=== PATIENT | female | born 1980 | race Hispanic/Latino ===

== ENCOUNTER 2017-11-23 12:20 | Emergency (ER) | payer SELFPAY ==
[2017-11-23] MEDS ORDERED: HYDROcodone/Acetaminophen 5/325 mg Tablet ONE (13:25)
[2017-11-23] MEDS ORDERED: ISOVUE-370 76%-LOCM 1 ML ONE (13:27)
[2017-11-23 13:37] LABS: #Eosinphils 0.1 thou/uL (0.0-0.7); #Lymphocytes 1.6 thou/uL (1.20-3.40); #Monocytes 0.4 thou/uL (0.11-0.59); #Neutrophils 5.6 thou/uL (1.40-6.50); %Basophils 0.2 % (0.0-1.0); %Eosinophils 0.7 % (0.0-10.0); %Lymphocytes 21.4 % (21.0-51.0); %Monocytes 4.9 % (0.0-10.0); %Neutrophils 72.8 % (42.0-75.0); Hemoglobin 8.3 g/dL (12.0-16.0); Mean Corpuscular HGB CONC 30.5 g/dL (32.0-36.0); Mean Corpuscular Hemoglobin 20.6 pg (27.0-31.0); Mean Corpuscular Volume 67.7 fL (78.0-98.0); Platelet Count 228 thou/uL (130-400); RBC Distribution Width 16.8 % (11.5-14.5); Red Blood Cell (RBC) Count 4.03 mill/uL (4.20-5.40); White Blood Cell (WBC) Count 7.7 thou/uL (4.8-10.8)
[2017-11-23 13:54] LABS: Anion Gap 11 mmol/L (10-20); BUN (Urea Nitrogen) 8 mg/dL (7.0-18.7); Calc. Creatinine Clearance 0 mL/min (70-130); Calcium 8.9 mg/dL (7.8-10.44); Carbon Dioxide 26 mmol/L (22-29); Chloride 103 mmol/L (98-107); Estimated GFR-MDRD Greater than 90; Glucose 98 mg/dL (70-105); Potassium 3.5 mmol/L (3.5-5.1); Sodium 136 mmol/L (136-145)
[2017-11-23 13:56] LABS: Anisocytosis SLIGHT = 6-15 cells (100X) (0-5/hpf); Hypochromia SLIGHT = 6-15 cells (100X) (0-5/hpf); MDiff Complete? YES; Microcytosis SLIGHT = 6-15 cells (100X) (0-5/hpf); Ovalocytes SLIGHT = 2-5 cells (100X) (0-1/hpf); PLT Morphology Comment Appears Adequate; Polychromasia SLIGHT = 2-3 cells (100X) (0-2/hpf); Schistocytes SLIGHT = 2-5 cells (100X) (0-1/hpf)
[2017-11-23 13:58] LABS: Pregnancy Test - Urine (BHCG) Negative (Negative); Pregu Control Background? CLEAR/WHITE (CLR/WHITE); Pregu Control Bar Appear? YES (CONTROL BAR)
--- NOTE | 2017-11-23 15:44 | CT ---
CONTRAST ENHANCED CT OF THE ABDOMEN AND PELVIS: History: Infection of umbilical area. Denies fever. Lump over naval. Technique: Contrast enhanced CT images of the abdomen and pelvis obtained after the administration of IV contrast. FINDINGS: The lung bases are unremarkable. No evidence of free intraperitoneal air is seen. No evidence of intraabdominal abscess seen. The liver and spleen are unremarkable. The pancreas is unremarkable. Numerous gallstones seen. No evidence of gallbladder wall thickening seen. Adrenal glands and kidneys are unremarkable. There is marked thickening and inflammatory change in the region of the umbilicus compatible with a f ocal area of cellulitis in the region of the umbilicus without evidence of associated abscess. Incidentally noted bicornuate uterus is also seen. IMPRESSION: 1. Cholelithiasis. 2. Bicornuate uterus. 3. Umbilical inflammatory change compatible with slightly cellulitis without evidence of abscess. No evidence of intraabdominal abscess seen. POS: [facility]
== END 2017-11-23 15:28 | disposition home or self-care (01) ==
LOC: ERS 12:20
DX: L03.316 Cellulitis of umbilicus (principal)
CPT/HCPCS: 36415; 74177; 80048; 81025; 85025

== ENCOUNTER 2020-04-14 11:33 | Observation (INO) | payer OTHER, SELFPAY ==
[2020-04-14 12:18] VITALS: BMI 40.0
[2020-04-14] MEDS ORDERED: hydrALAZINE 20 MG/ML VIAL SLOW IVP PRN ×2 (12:34→17:22)
[2020-04-14] MEDS ORDERED: Acetaminophen 325 MG TAB PO SCH (12:45)
[2020-04-14 12:57] LABS: #Lymphocytes 1.4 thou/uL (1.20-3.40); #Monocytes 0.4 thou/uL (0.11-0.59); #Neutrophils 4.5 thou/uL (1.40-6.50); %Basophils 0.3 % (0.0-1.0); %Eosinophils 0.7 % (0.0-10.0); %Lymphocytes 22.1 % (21.0-51.0); %Monocytes 5.5 % (0.0-10.0); %Neutrophils 71.4 % (42.0-75.0); Hemoglobin 10.4 g/dL (12.0-16.0); Mean Corpuscular Hemoglobin 27.4 pg (27.0-31.0); Mean Platelet Volume 9.6 fL (7.4-10.4); Platelet Count 176 thou/uL (130-400); RBC Distribution Width 14.9 % (11.5-14.5); Red Blood Cell (RBC) Count 3.81 mill/uL (4.20-5.40); White Blood Cell (WBC) Count 6.3 thou/uL (4.8-10.8)
--- NOTE | 2020-04-14 13:09 | PDOC.FPROB ---
FMR OB H&P: HPI - History of Present Illness Chief Complaint: elevated BP in clinic Indentification: 39yo at 35.2 WGA History of Present Illness: This is a 39F who was sent from Clinic for an elevated SBP in the 150s in addition to intermittent headaches for the past 2wks and mid-epigastric pain. She is not prone to getting headaches and has not attempted taking anything to resolve them. She also states the epigastric pain just feels like pressure when the baby moves. She denies RUQ pain, vision changes/scotomas/blurriness, as well as LE edema. Primary Care Physician: clinic FMR OB H&P: Current - Care : 4 Para: 2011 Gestational age: 35.2 Due date: 05/17/2020 - OB Labs Blood type: unknown RH: unknown Antibody Screen: unknown HIV: unknown RPR: unknown HepBsAg: unknown Rubella: non-immune Quad screen: unknown Gonorrhea: unknown Chlamydia: unknown GBS: unknown - Additional Ultrasound Additional: 03/04 Hadlock 51% 03/27 Hadlock 64.8% FMR OB H&P: History - Past Medical History PMH: None - OB History OB History: Her first ended in a loss. Her second resulted in delivery via LTCS for breech presentation, IUGR, oligo, and anemia of at 37wks. Her third ended in an elective repeat C/S. Hx of pre-e requiring Mg and Labetalol She denies complications during the surgeries or in recovery. - VESSEL CAPTAIN History VESSEL CAPTAIN History: Denies hx of STIs - Surgical History Sx History: LTCS x2 - Social History Social History: Denies alcohol, drug, tobacco use - Family History Family History: Endorses family hx of DM and HTN FMR OB H&P: Medications - Current Home Medications: Medication Instructions Recorded Confirmed Type Ferrous Sulfate [Feosol] 325 mg PO BID-WM #0 tab 01/14/14 04/14/20 Rx Aspirin [Aspirin EC] 81 mg PO DAILY 04/14/20 04/14/20 History Pnv No.95/Ferrous Fum/Folic AC 1 tablet PO DAILY 04/14/20 04/14/20 History [ Tablet] Allergies/Adverse Reactions: Allergies Allergy/AdvReac Type Severity Reaction Status Date / Time No Known Allergies Allergy Verified 04/14/20 12:12 FMR OB H&P: ROS - Review of Systems General: denies: recent trauma Eyes: denies: vision changes, double vision, scotomas ENT: denies: nasal congestion, rhinorrhea, sore throat Cardiovascular: denies: chest pain, edema Respiratory: denies: cough, congestion, shortness of breath, exercise intolerance Gastrointestinal: reports: nausea (occasional, consistent throughout ). denies: abdominal pain, diarrhea, constipation Genitourinary (Female): denies: dysuria, polyuria, vaginal discharge, vaginal bleeding, contractions Musculoskeletal: denies: swelling Neurologic: reports: headache Integumentary: denies: itching, rash, lesions FMR OB H&P: Vital Signs - Maternal Vital signs: BP 152/86 -> 131/80 HR 70-78 RR 18, SpO2 100% on RA T 97.8F - Heart Tones Baseline: 145 Variability: moderate Acceleration: present Deceleration: absent Sullivan contractions every: N/A FMR OB H&P: Physical Exam - Physical Exam General: NAD, awake, alert and oriented HEENT: normocephalic and atraumatic, EOMI, grossly normal vision, grossly normal hearing Neck: supple Chest: non-tender to palpation Heart: RRR, normal S1/S2, pulses present (2+ radial b/l, bounding dp b/l), no edema Deviation from normal: Mild systolic murmur at L upper sternal border, doesn't radiate to carotids General: CTAB, no respiratory distress, good air movement Abdomen: soft, gravid, non-tender Musculoskeletal: pulses present Neurological: no focal deficit Skin: no rash Lymphatic: no unusual bruising or bleeding Psychiatric: intact recent and remote memory, normal mood and affect FMR OB H&P: Results - Labs Lab results: Laboratory Results - last 24 hr 04/14/20 12:52 WBC 6.3 RBC 3.81 L Hgb 10.4 L Hct 31.6 L MCV 83.0 MCH 27.4 MCHC 33.0 RDW 14.9 H Plt Count 176 MPV 9.6 Neutrophils % 71.4 Lymphocytes % 22.1 Monocytes % 5.5 Eosinophils % 0.7 Basophils % 0.3 Neutrophils # 4.5 Lymphocytes # 1.4 Monocytes # 0.4 Eosinophils # 0.0 Basophils # 0.0 FMR OB H&P: A/P Disposition: This is a 39yo at 35.2WGA sent from clinic for pre-eclampsia workup. Elevated Blood Pressures - Hx of Pre-e in prior - SBP on arrival 152 -> 131 on repeat. These measurements were consistent with the ones obtained at the Clinic about 2hrs earlier - Concern for pre-e given elevated BP and presence of intermittent ALATORRE x15 days - Tylenol 650mg dose given - Hb/Hct 10.4/31.6, Plts 176, AST/ALT 16/ - Random urine protein/Cr ratio 0.35 in support of a dx of pre-eclampsia - SBP in the 150s before 1100 in [facility] followed by BP of 138/90 on 1532, completing the requirements for a dx of pre-eclampsia - Plan to admit and observe overnight SIUP - 35.2 WGA - FHT reassuring - No contractions - records have not been obtained d/t technical difficulties with the [facility] fax machine Anemia of - Hb 9.9 > 10.2 > 10.4 on arrival - On Fe supplementation Short interval /Late to care - MD aware Rubella non-immune - MMR in period AMA - Progenity and carrier screen neg UTI in 2T - Urine cx neg on 03/19 Dispo: Pt meets criteria for preeclampsia. Monitor overnight and, if no severe features, will discharge with twice weekly follow up at [facility] and schedule for repeat on 04/26/2020 at 37.0 WGA. Discussion: Date/Time: 04/14/20 1302 This H&P was discussed with Dr. Meg Mead and Dr. Brittney Dickson who agree with the above documentation and plan. Addendum - Attending - Attending Attestation Date/Time: 04/14/20 1590 I personally evaluated the patient and discussed the management with Dr. Lilian Brian I agree with the History, Examination, Assessment and Plan documented above with any addition or exceptions noted below- 39 @ 35 2/7 weeks who was sent from Clinic for an elevated SBP in the 150s in addition to intermittent headaches for the past 2wks and mid-epigastric pain. She is not prone to getting headaches and has not attempted taking anything to resolve them. She also states the epigastric pain just feels like pressure when the baby moves. She denies RUQ pain, vision changes/scotomas/blurriness, as well as LE edema. Afebrile BP 120-150/70-90 Exam repeated by me and agree with resident's findings. Labs: Urine Pr/Cr= 0.35, CBC and CMP normal. A/P: 1) IUP @ 35 2/7 weeks with pre- eclampsia without severe features- ALATORRE resolved with Tylenol. Will monitor overnight. Betamethasone x 2 doses in event that she may need delivery prior to 37 weeks. Cat 1 FHTS .
[2020-04-14 13:23] LABS: ALT (SGPT) 12 U/L (8-55); AST (SGOT) 16 U/L (5-34); Alkaline Phosphatase 139 U/L (40-110); Anion Gap 10 mmol/L (10-20); BUN (Urea Nitrogen) 6 mg/dL (7.0-18.7); Bilirubin, Total 0.4 mg/dL (0.2-1.2); Calc. Creatinine Clearance 221 mL/min (70-130); Calcium 8.4 mg/dL (7.8-10.44); Carbon Dioxide 26 mmol/L (22-29); Chloride 106 mmol/L (98-107); Globulin 3.4 g/dL (2.4-3.5); Glucose 80 mg/dL (70-105); Potassium 3.3 mmol/L (3.5-5.1); Protein, Total 6.4 g/dL (6.0-8.3); Sodium 139 mmol/L (136-145)
[2020-04-14 15:06] LABS: Creatinine, Urine 102.41 mg/dL (47-110)
[2020-04-14] MEDS ORDERED: Acetaminophen 500 MG TAB PO PRN (17:22)
[2020-04-14] MEDS ORDERED: Promethazine HCl 25 MG/ML VIAL IM PRN (17:22)
[2020-04-14] MEDS ORDERED: Ondansetron PF 4 MG/2 ML Vial IVP PRN (17:22)
[2020-04-14] MEDS: Betamet Acet/Betamet Na Ph 30 MG/5 ML VIAL IM SCH (17:52)
[2020-04-15 03:09] LABS: SARS-CoV-2 MS2 Positive; SARS-CoV-2 N Gene Negative; SARS-CoV-2 S Gene Negative; SARS-CoV-2 by NAA Not Detected (NotDetected); SARS-CoV-2 orf1ab Negative
--- NOTE | 2020-04-15 06:36 | PDOC.FM ---
- Subjective Subjective: Ning is doing well this morning and has no complaints. She states her headache has resolved and she continues to deny vision changes/scotomas/diplopia, RUQ pain, LE edema. - Objective Vital Signs & Weight: Vital Signs (12 hours) Temp Pulse Resp BP BP Pulse Ox 04/14/20 23:20 98.1 F 66 17 129/70 129/70 98 Weight Weight 96.162 kg Result Diagrams: 04/14/20 12:52 04/14/20 12:52 Phys Exam - Physical Examination Constitutional: NAD Neck: supple, full ROM Respiratory: clear to auscultation bilateral Cardiovascular: RRR Mild systolic murmur at L upper sternal border w/o radiation to carotids Gastrointestinal: soft, non-tender, positive bowel sounds Musculoskeletal: no edema, pulses present (2+ radial and bounding dp, b/l) Neurological: non-focal, moves all 4 limbs Psychiatric: normal affect, A&O x 3 Skin: no rash Dx/Plan - Plan Plan: This is a 39yo at 35.2WGA sent from clinic for pre-eclampsia workup. Elevated Blood Pressures - Hx of Pre-e in prior - Random urine protein/Cr ratio 0.35 + elevated BPs confirm dx of pre-eclampsia - Betamethasone injection x2 prior to discharge - Vitals q4h SIUP - 35.3 WGA - No contractions - records show the diagnoses listed below Anemia of - Hb 9.9 > 10.2 > 10.4 on arrival - On Fe supplementation Short interval /Late to care - MD aware Rubella non-immune - MMR in period AMA - Progenity and carrier screen neg UTI in 2T - Urine cx neg on 03/19 Dispo: Pt meets criteria for preeclampsia. Will discharge after second injection of betamethasone with twice weekly follow up at [facility]. Will schedule for repeat c- section at 37.0 WGA on 04/26/2020. Addendum - Attending - Attending Attestation Date/Time: 04/15/20 1048 I personally evaluated the patient and discussed the management with Dr. Lilian Brian I agree with the History, Examination, Assessment and Plan documented above with any addition or exceptions noted below - Patient without complaints. ALATORRE resolved. Afebrile VSS. A/P: 1) IUP@ 35 3/7 weeks with pre-eclampsia without severe features - BP <140/90 since yesterday evening. CBC. CMP normal. Will give next dose of steroids this evening and if BP remain stable d/c home with close follow-up. date scheduled for 37 weeks.
--- NOTE | 2020-04-15 11:06 | PDOC.BPN ---
- Brief Progress Note Encounter Date: 04/15/20 Encounter Time: 11:00 NST reactive: moderate variability, multiple accels, no decels BPP score 8/8, OUMAR 11.8, baby vertex, placenta mostly fundal but also anterior F/u visit scheduled at [facility] for 04/17 F/u BPP/NST scheduled at [facility] for 04/24 Covid swab scheduled for 04/24 at 10:00 scheduled for 04/27 at 37.1WGA at 07:30 Discussed diagnosis, provided patient education document, wrote out appt dates, covered concerning sxs and provided hospital precautions. Pt voiced understanding and all questions were answered.
--- NOTE | 2020-04-15 11:14 | ULT ---
Biophysical profile: 04/15/2020 COMPARISON: None HISTORY: 39-year-old female with preeclampsia TECHNIQUE: Multiplanar grayscale sonographic imaging of the gravid uterus obtained. FINDINGS: There is a vertex presentation. Placenta is located in the anterior fundus with no evidence for abruption or previa. heart rate is 139 bpm. Amniotic fluid index is 11.8 cm. The pizza chef reports a 2 out of 2 score for tone, breathing, movements, and amni otic fluid. Maternal adnexa not assessed on this examination. IMPRESSION: Normal 8 out of 8 biophysical profile score.
[2020-04-15 16:42] VITALS: BP 123/75; TEMP 98.9
[2020-04-15] MEDS: Betamet Acet/Betamet Na Ph 30 MG/5 ML VIAL IM SCH (17:08)
--- NOTE | 2020-04-17 02:34 | DIS ---
DATE OF ADMISSION: 04/14/2020 DATE OF DISCHARGE: 04/15/2020 RESIDENT: Alli Alexis MD. ADMITTING ATTENDING: Brittney Dickson MD. DISCHARGE ATTENDING: Brittney Dickson MD. CONSULTS: None. PROCEDURES: BPP, NST (04/15). PRIMARY DIAGNOSIS: Preeclampsia. SECONDARY DIAGNOSES: Severe preeclampsia in prior ; short interval ; low transverse section; rubella nonimmune; late to care; history of one spontaneous ; ALLI; Escherichia coli urinary tract infection in , resolved; and anemia. DISCHARGE MEDICATIONS: 1. Ferrous sulfate 325 mg p.o. b.i.d. WM. 2. Aspirin 81 mg p.o. daily. 3. vitamins 1 tab p.o. daily. DISCONTINUED MEDICATIONS: None. HISTORY OF PRESENT ILLNESS/HOSPITAL COURSE: This is a 39-year-old, G4, P2-0-1-2, at 35.2 WGA, who was sent from clinic for an elevated blood pressure with systolics in the 150s, in addition to intermittent headache. She denied right upper quadrant pain, vision changes, or lower extremity edema. The headache had been intermittent for 15 days, but she had not attempted to relieve it with Tylenol or any other NSAID. During her stay, she had a few repeat blood pressures with systolics greater than 140 and diastolic greater than 90. Overall, she stayed in the upper 130s systolic and upper 80s diastolic. Her random urine protein/creatinine ratio was 0.35. Her H/H, platelets, and AST/ALT were all normal. As such, she was kept for overnight observation, but her blood pressures stayed stable and heart rate tracing was reassuring. An NST performed the next morning was reactive, BPP score was 8, OUMAR was 11.8, and no other severe features developed. The patient was scheduled for a clinic appointment on Monday for followup. She was set up for a repeat COVID swab on 04/24. She was scheduled for a repeat on 04/27, at which point she would be 37.1 WGA. All of this was conveyed to the patient and provided to her in a written format. Hospital precautions were also given in verbal and written format. The patient was instructed to check blood pressures twice a day and have twice weekly follow up with clinic. The patient was understanding and all questions were answered. DISPOSITION: Stable. DISCHARGE INSTRUCTIONS: 1. Location: Home. 2. Diet: Regular. 3. Activity: As tolerated. 4. Followup: The patient is encouraged to follow up to all the appointments mentioned above, which includes a followup with her PCP on 04/17. Job ID: [id number] MTDD
== END 2020-04-15 17:52 | disposition home health service (06) ==
LOC: L&D/OP 11:33 → L&D 16:42 → L&D/OP 23:18 → 3SW 23:18
PROVIDERS: ADMIT Family Medicine; ATTEND Family Medicine
DX: O14.03 Mild to moderate pre-eclampsia, third trimester (principal); O09.523 Supervision of elderly multigravida, third trimester; O34.211 Maternal care for low transverse scar from previous cesarean delivery; O99.013 Anemia complicating pregnancy, third trimester; D64.9 Anemia, unspecified; O09.33 Supervision of pregnancy with insufficient antenatal care, third trimester; Z3A.35 35 weeks gestation of pregnancy; Z87.440 Personal history of urinary (tract) infections; Z79.82 Long term (current) use of aspirin; Z79.899 Other long term (current) drug therapy; Z20.828 Contact with and (suspected) exposure to other viral communicable diseases
CPT/HCPCS: 36415; 59025; 76819; 80053; 82570; 84156; 85025; 87635; 96372; 99285; G0378; J0702; U0003

== ENCOUNTER 2020-04-24 10:17 | Outpatient (CLI) | payer OTHER ==
[2020-04-24 23:06] LABS: SARS-CoV-2 MS2 Positive; SARS-CoV-2 N Gene Negative; SARS-CoV-2 S Gene Negative; SARS-CoV-2 by NAA Not Detected (NotDetected); SARS-CoV-2 orf1ab Negative
== END 2020-04-24 10:18 | disposition home or self-care (01) ==
LOC: LABBT 10:17
PROVIDERS: ATTEND Emergency Medicine
DX: Z01.812 Encounter for preprocedural laboratory examination (principal); Z20.828 Contact with and (suspected) exposure to other viral communicable diseases
CPT/HCPCS: 87635; U0003

== ENCOUNTER 2020-04-27 05:01 | Inpatient (IN) | payer MEDICAID, OTHER, SELFPAY ==
[2020-04-27] MEDS ORDERED: hydrALAZINE 20 MG/ML VIAL SLOW IVP PRN ×2 (05:20→10:44)
[2020-04-27] MEDS ORDERED: Ondansetron PF 4 MG/2 ML Vial IVP PRN ×3 (05:20→10:44)
[2020-04-27] MEDS ORDERED: Bicitra 30 ML UDCUP PO PRN (05:20)
[2020-04-27] MEDS ORDERED: Acetaminophen 500 MG TAB PO PRN (05:20)
[2020-04-27] MEDS ORDERED: Famotidine/PF 20 mg/2ml Vial SLOW IVP PRN (05:20)
[2020-04-27] MEDS ORDERED: Promethazine HCl 25 MG/ML VIAL IM PRN ×2 (05:20→08:04)
[2020-04-27 05:27] VITALS: BMI 32.8
[2020-04-27] MEDS ORDERED: Lactated Ringer's 1,000 ML IV SCH (05:30)
[2020-04-27] MEDS ORDERED: CEFAZOLIN 2 GM in Premix Bag 1 BAG IVPB SCH (05:30)
[2020-04-27 05:52] LABS: Hemoglobin 11.8 g/dL (12.0-16.0); Mean Corpuscular HGB CONC 32.6 g/dL (32.0-36.0); Mean Corpuscular Volume 82.9 fL (78.0-98.0); Mean Platelet Volume 10.1 fL (7.4-10.4); Platelet Count 223 thou/uL (130-400); RBC Distribution Width 14.7 % (11.5-14.5); Red Blood Cell (RBC) Count 4.38 mill/uL (4.20-5.40); White Blood Cell (WBC) Count 10.2 thou/uL (4.8-10.8)
--- NOTE | 2020-04-27 06:33 | PDOC.FPROB ---
FMR OB H&P: HPI - History of Present Illness Chief Complaint: rLTCS, pre-E History of Present Illness: 39yo @ 37.1wks by 24.4wk sono presents for rLTCS due to pre-eclampsia. +FM, denies vaginal bleeing/LOF, abdominal pain, contractions, vision changes, edema. Complains of mild ALATORRE and nausea. Primary Care Physician: YVETTE Gray FMR OB H&P: Current - Care : 4 Para: 2011 Gestational age: 37.1 wks Due date: 05/17/20 Dating Criteria: LMP/24.4wk sono Course/Complications: pre-E w/o severe features (BP, proteinuria) hx of preE w/ severe features short IPI, last delivery 02/06/19 hx of LTCS x2 rubella nonimmune late to care/poor dating hx of SAB AMA e coli bacteriuria CHRIS BMI 33 hx of uterine septum - OB Labs Blood type: O RH: positive Antibody Screen: negative HIV: negative RPR: negative HepBsAg: negative Rubella: non-immune Gonorrhea: negative Chlamydia: negative Pap Smear: 2019 NILM 1 hour gtt: 2 hr 82/122/120 GBS: negative H&H: 10.8/32.5 Platelets: 202 Additional labs: Urine Pr/Cr 0.29 Hep C neg - Anatomy Survey Anatomy survey: normal, male - Additional Ultrasound Additional: 04/17/20: BPP 8/8, OUMAR 6.81, right lateral placenta FMR OB H&P: History - Past Medical History PMH: hx of blood transfusion 2019 - OB History OB History: 2014 SAB 2016 LTCS 37 wks breech, oligo, IUGR 2019 LTCS 39wks, no complications - LACTATION COORDINATOR History LACTATION COORDINATOR History: 2019 NILM - Surgical History Sx History: CSx2 - Social History Social History: denies T/A/D use - Family History Family History: mother reports no Fm Hx FMR OB H&P: Medications - Current Home Medications: Medication Instructions Recorded Confirmed Type Ferrous Sulfate [Feosol] 325 mg PO BID-WM #0 tab 01/14/14 04/27/20 Rx Aspirin [Aspirin EC] 81 mg PO DAILY 04/14/20 04/27/20 History Pnv No.95/Ferrous Fum/Folic AC 1 tablet PO DAILY 04/14/20 04/27/20 History [ Tablet] Allergies/Adverse Reactions: Allergies Allergy/AdvReac Type Severity Reaction Status Date / Time No Known Allergies Allergy Verified 04/27/20 05:28 FMR OB H&P: ROS - Review of Systems General: denies: fever/chills Eyes: denies: eye pain, vision changes, scotomas ENT: denies: nasal congestion, sore throat Cardiovascular: denies: chest pain, edema Respiratory: denies: cough, shortness of breath Gastrointestinal: reports: nausea. denies: abdominal pain, vomiting, diarrhea Genitourinary (Female): denies: dysuria, vaginal discharge, vaginal bleeding, contractions Musculoskeletal: denies: pain, swelling Neurologic: reports: headache (mild). denies: weakness Integumentary: denies: itching, rash Endocrine: denies: polyuria Hematologic/Lymphatic: denies: prolonged or excessive bleeding FMR OB H&P: Vital Signs - Maternal Vital signs: Vital Signs - First Documented Temp Pulse Resp BP 98.6 F 107 H 20 130/95 H 04/27/20 05:12 04/27/20 05:12 04/27/20 05:12 04/27/20 05:12 - Heart Tones Baseline: 130 Variability: moderate Acceleration: absent Deceleration: absent Category: category 1 [place] contractions every: 0 FMR OB H&P: Physical Exam - Physical Exam General: NAD, awake, alert and oriented HEENT: normocephalic and atraumatic, no scleral icterus, grossly normal vision, grossly normal hearing Neck: supple, trachea midline Heart: RRR, normal S1/S2 General: CTAB, no respiratory distress, good air movement, no wheezing Abdomen: soft, gravid, non-tender Deviation from normal: scar from previous CS Musculoskeletal: normal gait and station, pulses present Neurological: no tremor, no focal deficit Skin: no rash, capillary refill <2 seconds, no jaundice Lymphatic: no unusual bruising or bleeding Psychiatric: intact recent and remote memory, normal mood and affect FMR OB H&P: Results - Labs Lab results: Laboratory Results - last 24 hr 04/27/20 04/27/20 05:30 05:30 WBC 10.2 RBC 4.38 Hgb 11.8 L Hct 36.3 MCV 82.9 MCH 27.0 MCHC 32.6 RDW 14.7 H Plt Count 223 MPV 10.1 Blood Type O POSITIVE Antibody Screen NEGATIVE - Imaging Imaging: Bedside sono: cephalic FMR OB H&P: A/P Discussion: Date/Time: 04/27/20 0632 #sIUP @37.1wks -bedside sono: cephalic -scheduled CS for pre-E -FHT: Cat 1, difficulty tracing, no CTX #pre-E w/o severe features -BP on 04/14 elevated 150/90, Urine pr/cr 0.29 on 04/17 -no severe features today -BP 115/80, HR 78 -pending pre-E labs -has been on ASA #short IPI -last delivery 02/06/19 -aware #hx of LTCS x2 -aware #rubella nonimmune -MMR pp #late to care/poor dating -aware #hx of SAB -aware #AMA -aware #hx of e coli bacteriuria in 2T -UCx neg on 03/19 #CHRIS of -Hg 11.8 on 04/27/20 -has been on iron supplementation -continue #BMI 33 -aware #hx of uterine septum -aware hx of preE w/ severe features -aware This H&P was discussed with Dr. Wiseman and Dr. Cook who agree with the above documentation and plan. Addendum - Attending - Attending Attestation Date/Time: 04/27/20 4962 I personally evaluated the patient and discussed the management with team. I agree with the History, Examination, Assessment and Plan documented above with any addition or exceptions noted below. Patient with firm dx of preE without severe features by BP and p/c criteria. Unfortunately suboptimal dates. We discussed risks of repeat which include pain, bleeding, infection, damage to bowel/bladder/other internal organs, needs for reoperation or prolonged hospitalization. Discussed early term status. Voiced understanding, signed consent and desired to proceed.
[2020-04-27 06:34] LABS: HBSAg Index 0.15 S/CO (0-0.99); Hep B Surf Ag Non-Reactive S/CO (NonReactive)
[2020-04-27] MEDS ORDERED: Morphine PF 10 MG/10 ML VIAL ONE (06:43)
[2020-04-27] MEDS ORDERED: Fentanyl 100 MCG/2 ML VIAL ONE (06:43)
[2020-04-27] MEDS ORDERED: ePHEDrine 50 MG/ML VIAL ONE (06:44)
[2020-04-27] MEDS ORDERED: Oxytocin 10 UNITS/ML VIAL ONE ×2 (06:44→08:43)
[2020-04-27] MEDS ORDERED: PHENYLEPHRINE-NS 100 MCG/ML 10 ML SYRINGE ONE (06:44)
[2020-04-27] MEDS ORDERED: Ketorolac Tromethamine 30 MG/ML VIAL ONE (06:44)
[2020-04-27] MEDS ORDERED: Ondansetron PF 4 MG/2 ML Vial ONE (06:44)
[2020-04-27 06:58] LABS: Syphilis Antibody Nonreactive (Nonreactive); Syphilis Antibody Index 0.06 S/CO (<1.00 Non-Reactive)
[2020-04-27] MEDS ORDERED: Ketorolac Tromethamine 30 MG/ML VIAL IVP PRN (08:04)
[2020-04-27] MEDS ORDERED: Promethazine HCl 25 MG SUPP PR PRN (08:04)
[2020-04-27] MEDS ORDERED: Naloxone HCl 0.4 mg/ml Vial IV PRN (08:04)
[2020-04-27] MEDS ORDERED: diphenhydrAMINE 50 MG/ML VIAL IVP PRN (08:04)
[2020-04-27] MEDS ORDERED: Naloxone HCl 0.4 mg/ml Vial IVP PRN ×2 (08:04)
[2020-04-27] MEDS ORDERED: Communication Order-Pharmacy FS SCH (08:15)
--- NOTE | 2020-04-27 09:43 | PDOC.OPDEL ---
OB Operative/Delivery Note Delivery Dr/Surgeon: Inderjit/Kristofer Maloney/Joyce Pre-Delivery Diagnosis: scheduled section Procedure/Post Delivery Dx: repeat low transverse CS Weeks gestation: 37 (37.1) Anesthesia: spinal - Findings A Sex: male Weight: 3.047 kg - 1 min: 9 - 5 min: 9 - Additional Findings/Plan Placenta delivered: manual removal findings: low transverse hysterotomy with extension (extension 2 cm left lateral) Estimated blood loss: 587 mL Compilations/Other Findings: Date of Procedure: 04/27/2020 Resident Primary Surgeons: Gay Jansen DO & Juan Maloney MD Attending Surgeon: Miko Cook MD Procedure: Repeat low transverse caesarean section Preoperative Diagnosis: 1) Term intrauterine 2) Previous LTCS x 2 3) Pre-Eclampsia without severe features, dx on 04/17/2020 4) AMA 5) Short IPI 6) Rubella non-immune 7) Late to care 8) hx of SAB 9) Anemia of 10) Obesity, BMI 33 Postoperative Diagnosis: 1) Term intrauterine , now delivered 2) Uterine septum 3) LTCS x 3 4) AMA 5) Short IPI 6) Rubella non-immune 7) Late to care 8) hx of SAB 9) Anemia of 10) Obesity, BMI 33 Anesthesia: spinal Indications: The patient is a 39 year old G4,P2012 female at 37.1 weeks gestation who presents for a repeat scheduled for Pre-Eclampsia. Procedure in Detail: After risks, benefits, and alternatives were explained to the patient, she gave informed consent. Pre-operative antibiotics included Cefazolin 2 gram IV. The patient was taken to the operating room and spinal anesthesia was initiated. She was placed in the supine position with a left tilt and prepped and draped in usual sterile fashion. A Pfannenstiel incision was made with a scalpel and carried down to the level of the fascia which was sharply nicked. The fascial cut was extended bilaterally with Pittman sissors. The superior edges of the cut fascial edges were elevated with Nataliia clamps and the underlying rectus muscles were sharply and bluntly dissected free. The recti were divided digitally and retracted manually. The peritoneum was entered bluntly and retracted manually. Bladder blade was placed. A low transverse incision was made with the scalpel and the uterus was entered in the midline with the scalpel. Clear fluid was seen. The hysterotomy was extended manually. The infant was noted to be vertex and was easily delivered by fundal pressure. Mouth and nares were bulb suctioned. Cord clamped and cut and grossly normal male infant was handed to waiting nurse. Cord blood was obtained. Placenta was manually extracted, found to be intact with 3 vessel cord and discarded. The uterus was externalized and the endometrium was curetted with a dry lap. A 2-3 cm extension was noted to left lateral side. It was also noted that the patient had a uterine septum that was slightly to the left of midline. The bladder blade was replaced and the uterus was closed with a running locking 1-Monocryl suture. Following this hemostasis was noted. The abdomen was suctioned free of clots. The uterus was internalized and the hysterotomy was again noted to be hemostatic. The right rectus muscle was then repaired with horizontal mattress 0-Vicryl suture. The fascia was closed with a running non-locking 1-PDS suture. The subcutaneous tissue was irrigated and there were no bleeders. The subcutaneous tissue was closed with three simple interrupted 3-0 Vicryl suture. The skin was approximated running non-locking 4-0 Monocryl suture and dermabond and a pressure dressing was placed. All counts were correct. The patient tolerated the procedure well and was taken to the recovery room in stable condition. Quantitative Blood Loss: 587 ml Complications: None Specimens: Grossly normal placenta with 3 vessel cord discarded. Findings: Grossly normal male with Apgars of 9 and 9 delivered at 0813 Drains: Antunez to gravity draining clear urine Post delivery plan: routine recovery Addendum - Attending - Attending Attestation Date/Time: 04/27/20 1520 I was present and scrubbed for all critical portions. Bicornuate uterus. Small left extension with good hemostasis x 3. No immediate complications.
[2020-04-27] MEDS ORDERED: Bisacodyl 10 MG SUPP PR PRN (10:44)
[2020-04-27] MEDS ORDERED: Misoprostol 200 MCG TAB PR PRN (10:44)
[2020-04-27] MEDS ORDERED: Lanolin Ointment 7 GM TUBE TOP PRN (10:44)
[2020-04-27] MEDS ORDERED: NS / Oxytocin 40 units/1000ml 1,000 ML IV SCH (10:44)
[2020-04-27] MEDS ORDERED: Acetaminophen 325 MG TAB PO PRN (10:44)
[2020-04-27] MEDS ORDERED: diphenhydrAMINE 25 MG CAP PO PRN (10:44)
[2020-04-27] MEDS: Ibuprofen 800 MG TAB PO SCH ×2 (11:57→23:05)
--- NOTE | 2020-04-27 13:41 | PDOC.OBPPN ---
FMR OB PN: Subj - Interval History Hospital Day: 1 Day: 0 Chief Complaint: 4 hour postop rLTCS FMR OB PN: Obj - Maternal Vital signs: BP: 111/62, HR 88, RR 18, O2 97% on RA, T 98.5F - Urine output I&O: 04/26/20 04/27/20 04/28/20 06:59 06:59 06:59 Output Total 1012 Balance -1012 - Lochia Lochia: minimal - Pain Management Pain scale: 0 FMR OB PN: Exam - Physical Exam General: NAD, awake, alert and oriented HEENT: normocephalic and atraumatic, no scleral icterus, grossly normal vision, grossly normal hearing Neck: supple, FROM Heart: RRR, normal S1/S2, no murmurs/rubs/gallops General: CTAB, no respiratory distress, no wheezing Abdomen: soft, non-tender Musculoskeletal: no atrophy Neurological: no focal deficit Skin: no rash : bandage intact, appropriately tender Lymphatic: no unusual bruising or bleeding Psychiatric: intact recent and remote memory, normal mood and affect FMR OB PN: Data - Labs Lab results: Laboratory Results - last 24 hr 04/27/20 04/27/20 04/27/20 05:30 05:30 05:30 WBC 10.2 RBC 4.38 Hgb 11.8 L Hct 36.3 MCV 82.9 MCH 27.0 MCHC 32.6 RDW 14.7 H Plt Count 223 MPV 10.1 Syphilis IgG/IgM Ab Nonreactive Hep Bs Antigen Non-Reactive Blood Type Antibody Screen 04/27/20 05:30 WBC RBC Hgb Hct MCV MCH MCHC RDW Plt Count MPV Syphilis IgG/IgM Ab Hep Bs Antigen Blood Type O POSITIVE Antibody Screen NEGATIVE FMR OB PN: A/P Discussion: Date/Time: 04/27/20 1340 #sIUP @37.1wks, now 4 hours postop -rLTCS @ 0813 on 04/27/20 2/2 pre-E -QBL 587mL w/ minimal lochia noted in post-op period -pain controlled -guerrero in place, clear urine, will dc -will advance diet as tolerated #hx pre-E w/o severe features -BP on 04/14 elevated 150/90, Urine pr/cr 0.29 on 04/17 -has been on ASA -BP normotensive since admission, no current symptoms #rubella nonimmune -MMR pp # complications: short IPI late to care/poor dating hx of SAB AMA e coli bacteriuria in 2T Anemia of BMI 33 hx of uterine septum Code: Full Diet: Advance as tolerated DVT ppx: SCD's Dispo: Stable, 4 hrs postop from rLTCS, continue normal pp care
[2020-04-27] MEDS: Ferrous Sulfate 325 MG TAB PO SCH (21:37)
[2020-04-28] MEDS: Ibuprofen 800 MG TAB PO SCH ×3 (05:54→21:23)
[2020-04-28 06:24] LABS: Hemoglobin 9.2 g/dL (12.0-16.0); Mean Corpuscular HGB CONC 32.7 g/dL (32.0-36.0); Mean Corpuscular Hemoglobin 27.6 pg (27.0-31.0); Mean Corpuscular Volume 84.3 fL (78.0-98.0); Mean Platelet Volume 9.2 fL (7.4-10.4); Platelet Count 136 thou/uL (130-400); RBC Distribution Width 14.7 % (11.5-14.5); Red Blood Cell (RBC) Count 3.32 mill/uL (4.20-5.40); White Blood Cell (WBC) Count 6.8 thou/uL (4.8-10.8)
--- NOTE | 2020-04-28 06:35 | PDOC.PP ---
Post Progress Note Post Day #: 1 Subjective: Patient feeling well this morning. Has tolerated eating some soft solids, has urinated but no bowel movement yet. She has passed flatus several times. Has had minimal bleeding postop. No complaints this morning, feels like she has good pain control. Wishes to discuss contraception at appointment. PO intake tolerated: yes Flatus: yes Ambulation: yes Vital Signs (12 hours) Temp Pulse Resp BP 04/28/20 03:50 98.6 F 77 15 125/68 04/28/20 00:00 98.5 F 77 15 108/64 04/27/20 21:00 98.5 F 75 15 111/69 Weight Weight 95.254 kg - Physical Examination General: NAD Cardiovascular: no m/r/g, RRR Respiratory: clear to auscultation bilaterally, non-labored breathing Abdominal: no distention, appropriately TTP Fundus firm & at: umbilicus Extremities: negative homans (B) Deviation from normal: no edema Skin: CS incision dry & intact, no rash Neurological: no gross focal deficits Psychiatric: normal affect Result Diagrams: 04/28/20 06:12 Additional Labs: Post Labs Hep Bs Antigen Non-Reactive S/CO (NonReactive) 04/27/20 05:30 Blood Type O POSITIVE 04/27/20 05:30 (1) Term delivered Code(s): O80 - ENCOUNTER FOR FULL-TERM UNCOMPLICATED DELIVERY Status: Acute (2) Uterus, septate Code(s): Q51.28 - OTHER AND UNSPECIFIED DOUBLING OF UTERUS Status: Acute (3) Pre-eclampsia, delivered Code(s): O14.94 - UNSPECIFIED PRE-ECLAMPSIA, COMPLICATING CHILDBIRTH Status: Acute (4) Rubella nonimmune status, delivered, current hospitalization Code(s): O99.892 - OTH DISEASES AND CONDITIONS COMPLICATING CHILDBIRTH; Z28.3 - UNDERIMMUNIZATION STATUS Status: Acute (5) Anemia in Code(s): O99.019 - ANEMIA COMPLICATING , UNSPECIFIED TRIMESTER Status: Acute Qualifiers: Trimester: unspecified trimester Qualified Code(s): O99.019 - Anemia complicating , unspecified trimester - Assessment/Plan #sIUP @ 37.1wks, now delivered -rLTCS @ 0813 on 12/14/20 due to pre-E -uterine septum noted intra-operatively -total QBL now 691mL (587 mL intra op, 109 mL period) -pain controlled -tolerating PO, has passed flatus, ambulating #hx pre-E w/o severe features -BP on 04/14 elevated 150/90, Urine pr/cr 0.29 on 04/17 -has been on ASA -BP normotensive since admission, no current symptoms #Rubella nonimmune -MMR pp # complications: short IPI late to care/poor dating hx of SAB AMA e coli bacteriuria in 2T Anemia of BMI 33 hx of uterine septum Code: Full Diet: Regular DVT ppx: SCD's Dispo: Stable, postop day 1 from rLTCS, continue routine pp care. Anticipate dis charge home tomorrow morning. Addendum - Attending - Attending Attestation Date/Time: 04/28/20 0116 I personally evaluated the patient and discussed the management with the team. I agree with the History, Examination, Assessment and Plan documented above with any addition or exceptions noted below.
[2020-04-28] MEDS: HYDROcodone/Acetaminophen 5/325 mg Tablet PO PRN ×2 (08:49→20:20)
[2020-04-28] MEDS: Ferrous Sulfate 325 MG TAB PO SCH ×2 (08:49→21:22)
[2020-04-28] MEDS: Prenatal Vitamin 1 TAB PO SCH (08:49)
[2020-04-28] MEDS: Simethicone Chewable 80 MG TAB PO PRN ×2 (08:49→20:20)
[2020-04-28] MEDS ORDERED: Measles/Mumps/Rubella 10 MCG/0.5 ML VIAL SC ONE (10:44)
[2020-04-28] MEDS ORDERED: Adacel (T-DAP) 0.5 ML SYRINGE IM ONE (10:44)
[2020-04-29] MEDS: Ibuprofen 800 MG TAB PO SCH ×2 (05:58→13:54)
--- NOTE | 2020-04-29 07:03 | PDOC.PP ---
Post Progress Note Post Day #: 2 Subjective: Patient feeling well this morning. Has tolerated meals, has urinated and had bowel movement She has passed flatus several times. Has had minimal bleeding postop. No complaints this morning, feels like she has good pain control with Motrin only. Wishes to discuss contraception at appointment. Was able to work with yesterday, will need to continue working with breast pump until milk comes in. Given written Rx. PO intake tolerated: yes Flatus: yes Ambulation: yes Vital Signs (12 hours) Temp Pulse Resp BP Pulse Ox 04/29/20 04:00 98.3 F 81 16 122/80 04/29/20 00:06 98.3 F 78 18 122/77 04/28/20 19:58 98.9 F 84 16 128/79 98 Weight Weight 95.254 kg - Physical Examination General: NAD Cardiovascular: no m/r/g, RRR Respiratory: clear to auscultation bilaterally, non-labored breathing Abdominal: + bowel sounds, no distention, appropriately TTP Fundus firm & at: just below umbilicus Deviation from normal: no edema Skin: CS incision dry & intact, no rash Neurological: no gross focal deficits Psychiatric: normal affect Result Diagrams: 04/28/20 06:12 Additional Labs: Post Labs Hep Bs Antigen Non-Reactive S/CO (NonReactive) 04/27/20 05:30 Blood Type O POSITIVE 04/27/20 05:30 (1) Term delivered Code(s): O80 - ENCOUNTER FOR FULL-TERM UNCOMPLICATED DELIVERY Status: Acute (2) Uterus, septate Code(s): Q51.28 - OTHER AND UNSPECIFIED DOUBLING OF UTERUS Status: Acute (3) Pre-eclampsia, delivered Code(s): O14.94 - UNSPECIFIED PRE-ECLAMPSIA, COMPLICATING CHILDBIRTH Status: Acute (4) Rubella nonimmune status, delivered, current hospitalization Code(s): O99.892 - OTH DISEASES AND CONDITIONS COMPLICATING CHILDBIRTH; Z28.3 - UNDERIMMUNIZATION STATUS Status: Acute (5) Anemia in Code(s): O99.019 - ANEMIA COMPLICATING , UNSPECIFIED TRIMESTER Status: Acute Qualifiers: Trimester: unspecified trimester Qualified Code(s): O99.019 - Anemia complicating , unspecified trimester - Assessment/Plan #sIUP @ 37.1wks, now delivered -rLTCS @ 0813 on 04/27/20 due to pre-E -uterine septum noted intra-operatively -total QBL now 691mL (587 mL intra op, 109 mL period) -pain controlled with Motrin -tolerating PO, has passed flatus & had BM, ambulating -written Rx for breast pump given #hx pre-E w/o severe features -BP on 04/14 elevated 150/90, Urine pr/cr 0.29 on 04/17 -has been on ASA -BP normotensive since admission, no current symptoms #Rubella nonimmune -MMR pp-to be given today (04/29) # complications: short IPI late to care/poor dating hx of SAB AMA e coli bacteriuria in 2T Anemia of BMI 33 hx of uterine septum Code: Full Diet: Regular DVT ppx: SCD's Dispo: Stable, postop day 2 from [facility], continue routine pp care. Anticipate discharge home later today. Addendum - Attending - Attending Attestation Date/Time: 04/29/20 1363 I personally evaluated the patient and discussed the management with the team. I agree with the History, Examination, Assessment and Plan documented above with any addition or exceptions noted below.
[2020-04-29 08:18] VITALS: BP 126/89; TEMP 97.8
[2020-04-29] MEDS: Prenatal Vitamin 1 TAB PO SCH (08:56)
[2020-04-29] MEDS: Ferrous Sulfate 325 MG TAB PO SCH (08:56)
== END 2020-04-29 14:20 | disposition home or self-care (01) | DRG 787 ==
LOC: L&D 05:01 → 3SW 11:49
PROVIDERS: ADMIT Family Medicine; ATTEND Emergency Medicine
PROC: 10D00Z1 Extraction of Products of Conception, Low, Open Approach (ICD-10-PCS; principal; 2020-04-27)
DX: O34.211 Maternal care for low transverse scar from previous cesarean delivery (principal); O72.1 Other immediate postpartum hemorrhage; O14.94 Unspecified pre-eclampsia, complicating childbirth; O99.214 Obesity complicating childbirth; E66.9 Obesity, unspecified; O99.02 Anemia complicating childbirth; D64.9 Anemia, unspecified; O34.03 Maternal care for unspecified congenital malformation of uterus, third trimester; Z37.0 Single live birth; Z3A.37 37 weeks gestation of pregnancy; Z79.82 Long term (current) use of aspirin; Q51.28 Other and unspecified doubling of uterus
CPT/HCPCS: 36415; 51702; 85027; 86780; 86850; 86900; 86901; 87340; 88307; 90707; J1885; J2270; J2405; J3010; J3490

== ENCOUNTER 2021-01-24 09:40 | Emergency (ER) | payer MEDICAID, SELFPAY ==
[2021-01-24 10:20] LABS: #Eosinphils 0.1 thou/uL (0.0-0.7); #Lymphocytes 0.9 thou/uL (1.20-3.40); #Monocytes 0.3 thou/uL (0.11-0.59); #Neutrophils 5.2 thou/uL (1.40-6.50); %Basophils 0.6 % (0.0-1.0); %Eosinophils 1.3 % (0.0-10.0); %Lymphocytes 13.4 % (21.0-51.0); %Monocytes 4.3 % (0.0-10.0); %Neutrophils 80.4 % (42.0-75.0); Hemoglobin 11.2 g/dL (12.0-16.0); Mean Corpuscular HGB CONC 33.5 g/dL (32.0-36.0); Mean Corpuscular Hemoglobin 27.7 pg (27.0-31.0); Mean Corpuscular Volume 82.6 fL (78.0-98.0); Mean Platelet Volume 8.4 fL (7.4-10.4); Platelet Count 225 thou/uL (130-400); RBC Distribution Width 13.1 % (11.5-14.5); Red Blood Cell (RBC) Count 4.06 mill/uL (4.20-5.40); White Blood Cell (WBC) Count 6.5 thou/uL (4.8-10.8)
[2021-01-24 10:29] LABS: BHCG - Serum Negative (NEGATIVE); Pregs Control Background? CLEAR/WHITE (CLR/WHITE); Pregs Control Bar Appear? YES (CONTROL BAR)
[2021-01-24 10:37] LABS: ALT (SGPT) 14 U/L (8-55); AST (SGOT) 15 U/L (5-34); Albumin 3.9 g/dL (3.5-5.0); Alkaline Phosphatase 98 U/L (40-110); Anion Gap 11 mmol/L (10-20); BUN (Urea Nitrogen) 9 mg/dL (7.0-18.7); Bilirubin, Total 0.4 mg/dL (0.2-1.2); Calc. Creatinine Clearance 0 mL/min (70-130); Calcium 8.7 mg/dL (7.8-10.44); Carbon Dioxide 26 mmol/L (22-29); Chloride 105 mmol/L (98-107); Globulin 3.5 g/dL (2.4-3.5); Glucose 121 mg/dL (70-105); Potassium 3.8 mmol/L (3.5-5.1); Protein, Total 7.4 g/dL (6.0-8.3); Sodium 138 mmol/L (136-145)
[2021-01-24] MEDS ORDERED: Meclizine HCl 25 MG TAB ONE (11:23)
[2021-01-24] MEDS ORDERED: Ondansetron PF 4 MG/2 ML Vial ONE (11:23)
[2021-01-24 12:10] LABS: Bacteria/HPF 4+ HPF (None Seen); Bilirubin Negative (Negative); Blood, Urine 3+ (Negative); Clarity Turbid (Clear); Glucose, Urine (Dipstick) Normal (Negative); Ketone, Urine Negative (Negative); Leukocyte 500 Leu/uL (Negative); Nitrite Negative (Negative); Protein, Urine (Dipstick) 30 mg/dL (Neg-Trace); RBC/HPF 0-3 HPF (0-3); Specific Gravity, Urine 1.008 (1.002-1.036); Squamous Epithelial 21-50 HPF (0-3); Urobilinogen Normal mg/dL (Less than 2); WBC/HPF 21-50 HPF (0-3); pH, Urine 6.5 (5.0-9.0)
== END 2021-01-24 13:51 | disposition home or self-care (01) ==
LOC: ERS 09:40
DX: R42 Dizziness and giddiness (principal); R11.2 Nausea with vomiting, unspecified; R29.700 NIHSS score 0
CPT/HCPCS: 36415; 80053; 81003; 81015; 84703; 85025; 93005; 96374; J2405

== ENCOUNTER 2021-12-17 00:44 | Emergency (ER) | payer OTHER, SELFPAY ==
[2021-12-17 01:30] LABS: Hemoglobin 8.1 g/dL (12.0-16.0); Mean Corpuscular HGB CONC 32.1 g/dL (32.0-36.0); Mean Corpuscular Hemoglobin 23.2 pg (27.0-31.0); Mean Corpuscular Volume 72.3 fL (78.0-98.0); Mean Platelet Volume 10.8 fL (7.4-10.4); Platelet Count 207 thou/uL (130-400); RBC Distribution Width 18.4 % (11.5-14.5); Red Blood Cell (RBC) Count 3.49 mill/uL (4.20-5.40); White Blood Cell (WBC) Count 7.4 thou/uL (4.8-10.8)
[2021-12-17 01:33] LABS: BHCG - Serum POSITIVE (NEGATIVE); Pregs Control Background? CLEAR/WHITE (CLR/WHITE); Pregs Control Bar Appear? YES (CONTROL BAR)
[2021-12-17 01:50] LABS: ALT (SGPT) 10 U/L (8-55); AST (SGOT) 13 U/L (5-34); Albumin 3.6 g/dL (3.5-5.0); Alkaline Phosphatase 71 U/L (40-110); Anion Gap 11 mmol/L (10-20); BUN (Urea Nitrogen) 11 mg/dL (7.0-18.7); Bilirubin, Total 0.2 mg/dL (0.2-1.2); Calc. Creatinine Clearance 0 mL/min (70-130); Carbon Dioxide 23 mmol/L (22-29); Chloride 105 mmol/L (98-107); Estimated GFR 118; Globulin 3.4 g/dL (2.4-3.5); Glucose 107 mg/dL (70-105); Lipase 24 U/L (8-78); Potassium 3.6 mmol/L (3.5-5.1); Sodium 135 mmol/L (136-145)
[2021-12-17] MEDS ORDERED: Lidocaine Viscous Sol 2% 15 ml UD Cup ONE (01:55)
[2021-12-17] MEDS ORDERED: Mag-Al 1200 mg/1200 mg/30 ML UDCUP ONE (01:55)
[2021-12-17 02:05] LABS: #Eosinphils 0.2 thou/uL (0.0-0.7); #Lymphocytes 1.9 thou/uL (1.20-3.40); #Monocytes 0.5 thou/uL (0.11-0.59); #Neutrophils 4.8 thou/uL (1.40-6.50); %Basophils 0.4 % (0.0-1.0); %Eosinophils 2.1 % (0.0-10.0); %Lymphocytes 25.8 % (21.0-51.0); %Neutrophils 64.8 % (42.0-75.0); Anisocytosis SLIGHT = 6-15 cells (100X) (0-5/hpf); Hypochromia SLIGHT = 6-15 cells (100X) (0-5/hpf); MDiff Complete? YES; Microcytosis SLIGHT = 6-15 cells (100X) (0-5/hpf)
[2021-12-17 06:08] LABS: Bacteria/HPF None Seen HPF (None Seen); Bilirubin Negative (Negative); Blood, Urine 1+ (Negative); Clarity Clear (Clear); Glucose, Urine (Dipstick) Normal (Negative); Ketone, Urine Negative (Negative); Leukocyte Negative Leu/uL (Negative); Nitrite Negative (Negative); Protein, Urine (Dipstick) Negative (Neg-Trace); RBC/HPF 0-3 HPF (0-3); Squamous Epithelial 0-3 HPF (0-3); Urobilinogen Normal mg/dL (Less than 2); WBC/HPF 0-3 HPF (0-3); pH, Urine 6.5 (5.0-9.0)
== END 2021-12-17 06:20 | disposition home or self-care (01) ==
LOC: ERS 00:44
DX: O46.91 Antepartum hemorrhage, unspecified, first trimester (principal); Z3A.12 12 weeks gestation of pregnancy
CPT/HCPCS: 36415; 76856; 80053; 81003; 81015; 83690; 84702; 84703; 85025; 86900; 86901

== ENCOUNTER 2025-03-08 11:16 | Emergency (ER) | payer SELFPAY ==
[2025-03-08] MEDS ORDERED: cefTRIAXone (ROCEPHIN) 1 GM VIAL ONE (12:07)
[2025-03-08] MEDS ORDERED: Acetaminophen 500 MG TAB ONE (12:45)
[2025-03-08 12:46] LABS: #Basophils 0.03 10x3/uL (0.0-0.2); #Eosinophils 0.05 10x3/uL (0.0-0.7); #Monocytes 0.85 10x3/uL (0.11-0.59); #Neutrophils 10.40 10x3/uL (1.40-6.50); %Basophils 0.2 % (0.0-1.0); %Eosinophils 0.4 % (0.0-10.0); %Lymphocytes 11.8 % (21.0-51.0); %Monocytes 6.6 % (0.0-10.0); %Neutrophils 80.5 % (42.0-75.0); Hematocrit 28.6 % (36.0-47.0); Hemoglobin 7.8 g/dL (12.0-16.0); Mean Corpuscular Hemoglobin 19.6 pg (27.0-31.0); Mean Corpuscular Volume 71.9 fL (78.0-98.0); Platelet Count 299 10x3/uL (130-400); Red Blood Cell (RBC) Count 3.98 mill/uL (4.20-5.40); White Blood Cell (WBC) Count 12.92 10x3/uL (4.8-10.8)
[2025-03-08 13:01] LABS: BHCG - Serum Negative (NEGATIVE); Pregs Control Background? CLEAR/WHITE (CLR/WHITE); Pregs Control Bar Appear? YES (CONTROL BAR)
[2025-03-08 13:02] LABS: Bacteria/HPF 2+ HPF (None Seen); CAUTI Indications for Culture Dysuria,urgency,freq; Glucose, Urine (Dipstick) Normal (Negative); Leukocyte 500 Leu/uL (Negative); Protein, Urine (Dipstick) 20 mg/dL (Neg-Trace); RBC/HPF 0-3 HPF (0-3); Specific Gravity, Urine 1.016 (1.002-1.036)
[2025-03-08 13:03] LABS: Urine Culture Reflex Yes Yes
[2025-03-08] MEDS ORDERED: Iopamidol-370 76% 500 ML MDV (1 ML CHARGE) ONE (13:03)
[2025-03-08 13:05] LABS: ALT (SGPT) 48 U/L (Less than 34); AST (SGOT) 50 U/L (11-34); Albumin 3.5 g/dL (3.1-4.5); Alkaline Phosphatase 158 U/L (40-110); Anion Gap 15 mmol/L (10-20); BUN (Urea Nitrogen) 8 mg/dL (7.0-18.7); Bilirubin, Total 1.0 mg/dL (0.3-1.2); Calc. Creatinine Clearance 0 mL/min (70-130); Calcium 9.0 mg/dL (7.8-10.44); Carbon Dioxide 22 mmol/L (22-29); Chloride 101 mmol/L (98-107); Globulin 4.4 g/dL (2.4-3.5); Glucose 110 mg/dL (70-105); Lipase 10 U/L (8-78); Potassium 3.6 mmol/L (3.5-5.1); Sodium 134 mmol/L (136-145)
[2025-03-08] MEDS ORDERED: Lidocaine 1% (PF) 30 ML VIAL ONE (15:24)
== END 2025-03-08 15:38 | disposition home or self-care (01) ==
LOC: ERS 11:16
DX: T81.41XA Infection following a procedure, superficial incisional surgical site, initial encounter (principal); L02.211 Cutaneous abscess of abdominal wall; Z55.6 Problems related to health literacy
CPT/HCPCS: 10060; 36415; 74177; 80053; 81001; 83605; 83690; 84484; 84703; 85025; 87040; 87086; 93005; 96365; 96375; J0696; J2003; J3010; Q9967